=== PATIENT | male | born 1965 | race Caucasian/White ===

== ENCOUNTER 2019-02-07 21:26 | Emergency (ER) | payer MEDICAID ==
[~2019-02-07] VITALS: Ht 170.2 cm; Wt 86.9 kg
[2019-02-07 21:27] VITALS: BP 162/94; PULSE 78; RESP 19; Ht 170.2 cm; Wt 86.9 kg
--- NOTE | 2019-02-07 23:51 | ERD ---
ER Documentation Chief Complaint Chief Complaint POSS FISH BONE IN THROAT; NO RESP DISTRESS; [id number] HPI 53-year-old male, previously healthy, presents to the emergency department, complaining a throat irritation after eating fish for dinner. The patient denies shortness of breath, no abdominal pain, no nausea or vomiting. No current foreign body sensation. ROS All systems reviewed and are negative except as per history of present illness. Medications Home Meds Active Scripts Acetaminophen* (Tylenol*) 325 Mg Tablet, 2 TAB PO Q6 PRN for PAIN AND OR ELEVATED TEMP, #20 TAB Prov:GRAZYNA COVARRUBIAS MD 02/08/19 PMhx/Soc History of Surgery: Yes (Tonsillectomy, left ear, left knee, nasal sx) Anesthesia Reaction: No Hx Neurological Disorder: No Hx Respiratory Disorders: No Hx Cardiac Disorders: Yes (HTN, Hyperlipidemia) Hx Psychiatric Problems: Yes Hx Miscellaneous Medical Probl: Yes Hx Alcohol Use: Yes (Rarely) Hx Substance Use: No Hx Tobacco Use: No Smoking Status: Never smoker FmHx Family History: No diabetes, No coronary disease Physical Exam Vitals Vital Signs Date Temp Pulse Resp B/P (MAP) Pulse Ox O2 O2 Flow FiO2 Time Delivery Rate 02/07/19 99.4 78 19 162/94 98 21:27 (116) Physical Exam Patient alert, oriented, vital signs stable. HEAD: Normocephalic, atraumatic. EYES: PERRLA, EOMI, Sclera and conjunctiva appear normal. NOSE: Clear and patent nostrils. EARS: Canals clear, tympanic membranes WNL. MOUTH: normal lips and tongue, no oral lesions. THROAT: Erythematous oropharynx, no foreign body seen NECK: Supple, No lymphadenopathy. Full ROM without pain or tenderness. HEART: RRR, no rubs, murmurs, clicks or gallops. LUNGS: Clear to auscultation. ABDOMEN: Soft, non-tender without masses or hepatosplenomegaly. EXTREMITIES: No edema bilaterally. BACK: Full ROM, no deformity, normal back exam NEURO: Cranial nerves grossly intact, no motor or sensory deficit SKIN: No rashes, no petechia. Procedures/MDM Differential diagnosis include but not limited to: Retained foreign body, intestinal obstruction. Low suspicion for upper airway obstruction or acute abdomen. Physical examination and clinical presentation consistent most likely with ingestion of a foreign body without evidence of obstruction. During the ED course the patient remained stable, no new complaints. Treatment options, results and clinical impression discussed with the parent who agreed with management. The patient is stable to be treated outpatient and will be discharged home; some side effects of prescribed medications were reviewed. The parent was instructed to follow up with the primary care provider in the next 48h. If symptoms persist, worsen or new symptoms develop, then patient s hould return to the ED immediately. Instructions explained and given directly by me to the parent with acknowledgment and demonstrated understanding. Disclaimer: Inadvertent spelling and grammatical errors are likely due to EHR/dictation software use and do not reflect on the overall quality of patient care. Also, please note that the electronic time recorded on this note does not necessarily reflect the actual time of the patient encounter. Departure Diagnosis: Primary Impression: Foreign body ingestion Condition: Stable Additional Instructions: Thank you very much for allowing us to participate in your care. Your health and safety is our top priority at [facility]. The evaluation in the emergency department has been done to rule out an acute emergency, therefore, chronic conditions like malignancy or other diseases have not been evaluated; therefore, you need to follow up with a primary care provider in the next 48h. If symptoms persist, worsen or new symptoms develop, then patient should return to the ED immediately. Call your primary care doctor TOMORROW for an appointment during the next 2-4 days and bring all the information provided. Have prescriptions filled and follow precisely the directions on the label. If the symptoms get worse and your provider is unavailable, return to the Emergency Department immediately. GRAZYNA COVARRUBIAS MD Feb 07, 2019 23:51
[2019-02-08] MEDS ORDERED: ACET325T33 PO (00:33)
== END 2019-02-08 00:41 | disposition home or self-care (01) ==
LOC: FTE 21:26
DX: T18.9XXA Foreign body of alimentary tract, part unspecified, initial encounter (principal); I10 Essential (primary) hypertension; X58.XXXA Exposure to other specified factors, initial encounter; Y92.9 Unspecified place or not applicable
CPT/HCPCS: 70360; Z7502